=== PATIENT | female | born 1980 | race Caucasian/White ===

== ENCOUNTER 2016-04-29 16:08 | Emergency (ER) | payer MEDICAID ==
[~2016-04-29 16:08] MED LIST: /CELE20CA; /DULO30CA; /QUET10TA PO; ADDE10TA PO; ADDE1TAB22 PO; ANTA250T PO; BACL10TA2 OR; BUSP10TA2; BUTR5DIS2 TD; CAMP333T PO; CARA1TAB2 PO; CELE40TA PO; CLAR10CA3 PO; DICL75TA PO; DICLOFENAC PO; EMLA TOP; FENT12PA TD; GABA300C2 PO; HYDR-3719 PO; KLON1TAB PO; LAMI25TA PO; LODINE PO; LORT5TAB PO; MELO15TA3 PO; NEUR300C PO; OMEP10CASR PO; PERC5TAB8 PO; PREG50CA PO; PROA1AER IN; PROT1TAB2 PO; PROZ40CA PO; REME15TA PO; ROXI1TAB2 PO; SOMA350T OR; TIZA4TAB PO; TRAM50TA2; TRAM50TA2 OR; VICO10TA11 PO; VICO5TAB16 PO; VIST50CA PO; WELL75TA PO; buspar PO; vicoden; vicodin PO
[2016-04-29] MEDS ORDERED: IPRATROPIUM 0.5MG/ALBUTEROL 2.5MG INH SOL UD 3ML (DUONEB)(J7620) As Ordered ONE (18:07)
[2016-04-29] MEDS ORDERED: NORCO, ANEXSIA 5/325MG TABLET (HYDROcodone/ACETAMINOPHEN) As Ordered ONE (18:07)
--- NOTE | 2016-04-29 19:33 | EDDOCDS ---
Nurse's Notes [facility] Name: Ash Sharp Age: 36 yrs Sex: Female : 1980 Arrival Date: 04/29/2016 Time: 16:08 Bed PR2 [facility] MD: Diagnosis: Acute bronchitis;Acute upper respiratory infections of multiple and unspecified sites;Other chronic pain Presentation: 04/29 16:14 Presenting complaint: Patient states: Patient reports that she has pain all over. jmb Patient reports that cough is bad and mouth hurts. Patient reports that it is her tongue that hurts and hurts when she eats. Patient unsure why. Adult Sepsis Screening: The patient does not have new or worsening altered mentation. Patient's respiratory rate is less than 22. Systolic blood pressure is greater than 100. Patient has a qSOFA score of 0- Negative Sepsis Screen. Suicide/Homicide risk assessment- the patient denies having any suicidal and/or homicidal ideations and does not present with any other emotional, behavioral or mental health complaints. Status: Patient is not a patient service representative or dependent. Transition of care: patient was not received from another setting of care. 16:14 Acuity: MARVIN Level 3 b 16:14 Method Of Arrival: Walkin/Carried/Asstd [facility] Triage Assessment: 16:17 General: Appears in no apparent distress, comfortable, Behavior is appropriate for age, jmb cooperative. Pain: Location: head, neck, chest, abdomen, pelvis, right arm, right hand, left arm, left hand, right leg, left leg, left foot, back of head, back of neck, back of left arm, back of right arm, posterior chest, buttocks, back of left leg, back of right leg, left heel, right heel and back Pain currently is 8 out of 10 on a pain scale. HIV screening NA for this visit Offered previously. Neurological: Level of Consciousness is awake, alert, obeys commands, Oriented to person, place, time, Speech is normal, Facial symmetry appears normal, Facial symmetry: tongue is midline. Respiratory: Airway is patent Respiratory effort is even, unlabored, Respiratory pattern is regular, symmetrical. Derm: Skin is pink, warm & dry. Musculoskeletal: Range of motion intact in all extremities. 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 Prozac 40 mg Oral cap 1 cap 2 times per day 2. Wellbutrin 100 mg Oral tab 1 tab 2 times per day 3. oxybutynin chloride 5 mg Oral tab 1 tab 2 times per day 4. dicyclomine 10 mg Oral cap 1 cap twice a day - PMHx: Depression; Anxiety; bladder issues; IBS; - PSHx: finger surgery; - Social history: Smoking status: Patient states former smoker of tobacco. No barriers to communication noted, The patient speaks fluent Syriac, Speaks appropriately for age. - Family history: Not pertinent. - : The pt / caregiver states he / she is not on anticoagulants. Home medication list is obtained from the patient. - Exposure Risk Screening:: None identified. Screenin:31 Screening information is obtained from the patient. Fall risk: No risks identified. js13 Assistance ADL's: requires no assistance with activities of daily living. Abuse/DV Screen: The patient / caregiver reports he/she is: not in a situation that causes fear, pain or injury. Nutritional screening: No deficits noted. Advance Directives: There is no active DNR order. home support is adequate. Assessment: 17:31 General: Appears in no apparent distress, Behavior is appropriate for age, cooperative. js13 Pain: Location: all over. Neurological: Level of Consciousness is awake, alert. Respiratory: Airway is patent Respiratory effort is even, unlabored, Respiratory pattern is regular, symmetrical. Derm: Skin is pink, warm & dry. 18:52 General: Appears in no apparent distress, Behavior is appropriate for age, cooperative, jmb patient SITTING IN CHAIR IN ROOM READING PAPER. no VOICED COMPLAINTS AT THIS TIME. . Pain: Location: back and right heel and left heel and back of right leg and back of left leg and buttocks and posterior chest and back of right arm and back of left arm and back of neck and back of head and left foot and left leg and right leg and left hand and left arm and right hand and right arm and pelvis and abdomen and chest and neck and head Pain currently is 7 out of 10 on a pain scale. Neurological: Level of Consciousness is awake, alert, obeys commands, Oriented to person, place, time, Speech is normal, Facial symmetry appears normal, Facial symmetry: tongue is midline. Respiratory: Airway is patent Respiratory effort is even, unlabored, Respiratory pattern is regular, symmetrical. 19:31 General: Appears in no apparent distress, Behavior is appropriate for age, cooperative. mb9 Pain: Denies pain. Respiratory: Airway is patent Respiratory effort is even, unlabored. Vital Signs: 16:11 BP 111 / 67; Pulse 78; Resp 16; Temp 98.5(O); Pulse Ox 98% on R/A; Weight 65.77 kg (R); jrd Height 5 ft. 3 in. (160.02 cm) (R); Pain 8/10; 19:23 BP 119 / 67; Pulse 80; Resp 18; Temp 99.7(TE); Pulse Ox 95% on R/A; Pain 2/10; ar3 16:11 Body Mass Index 25.69 (65.77 kg, 160.02 cm) [facility] Vitals: 16:11 Log In Time: April 29, 2016 at 16:06. [facility] ED Course: 16:09 Patient visited by Kit Caballero PCA. jrd 16:09 Patient moved to Waiting jrd 16:13 Patient visited by Kit Caballero PCA. jrd 16:13 Patient moved to Pre RCE jrd 16:15 Triage Initiated jmb 17:13 Patient moved to Triage 3 ar3 17:31 The patient / caregiver is instructed regarding the plan of care and ED course. js13 17:32 Patient visited by Flory Schmitt RN. js13 17:43 Efraín [facility]-C [facility] cc10 17:43 Delia Hawkins MD is Attending Physician. cc10 17:55 Patient visited by Efraín Guzman PA-C. cc10 17:55 Patient visited by Efraín Guzman PA-C. cc10 18:05 Patient moved to PR2 / js13 18:53 Patient visited by Gucci Noland RN. jmb 19:06 Patient name changed from Fanci\S\\S\Lila\S\ to Fanci\S\ \S\Lila. EDMS 19:08 [facility] Payment Agreement was scanned into [employer] and attached to record. gjb 19:17 [facility] is Referral Physician. cc10 19:23 Patient visited by David, Keshia, TECHNICAL MARKETING CONSULTANT. ar3 19:31 No IV's were initiated during this patient's visit. No procedures done that require mb9 assistance. Administered Medications: 18:08 Drug: HYDROcodone-acetaminophen 1 tabs [hydrocodone 5 mg-acetaminophen 325 mg tablet (1 js13 tabs)] Route: PO; 18:18 Drug: Albuterol-Ipratropium 3 ml [ipratropium-albuterol 0.5 mg-3 mg(2.5 mg base)/3 mL cs15 nebulization soln (3 mL)] Route: Inhalation; RT: 18:18 Initial Med Neb Given as ordered. Respiratory: Respiratory effort is unlabored, cs15 Respiratory pattern is regular Breath sounds are coarse Breath sounds with wheezes bilaterally. Reports pain upon taking a deep breath. Order Results: There are currently no results for this order. Outcome: 19:17 Discharge ordered by Provider. cc10 19:31 Discharge Assessment: Patient awake, alert and oriented x 3. No cognitive and/or mb9 functional deficits noted. Patient verbalized understanding of disposition instructions. patient administered narcotics - no. The following High Risk Discharge criteria are identified: None. Condition: good Condition: stable Condition: improved. Discharge instructions given to patient, Instructed on discharge instructions, follow up and referral plans. medication usage, Demonstrated understanding of instructions, medications, Pt was receptive of discharge instructions/ teaching. Prescriptions given X 2. No special radiology studies were completed. Property :Personal belongings accompany Pt. 19:32 Patient left the ED. mb9 Signatures: Dispatcher [employer] EDMS Keshia Hernandez, TECHNICAL MARKETING CONSULTANT TECHNICAL MARKETING CONSULTANT ar3 Flory Schmitt RN RN js13 Gucci Noland RN RN jmb Coniski, Colin, PA-C PA-C cc10 Kit Caballero, TECHNICAL MARKETING CONSULTANT TECHNICAL MARKETING CONSULTANT d Peewee Powers RN RN mb9 David Hernandez,RT RT cs15 Ree Castillo MTDD
--- NOTE | 2016-04-29 19:33 | EDDOCDS ---
Physician Documentation [facility] Name: Ash Sharp Age: 36 yrs Sex: Female : 1980 Arrival Date: 04/29/2016 Time: 16:08 Bed PR Private MD: Disposition: 04/29/16 19:17 Discharged to Home/Self Care. Impression: Acute bronchitis, Acute upper respiratory infections of multiple and unspecified sites, Other chronic pain. - Condition is Stable. - Discharge Instructions: Chronic Pain, Upper Respiratory Infection, Adult. - Prescriptions for Hydrocodone- Acetaminophen 5-325 mg Oral Tablet - take 1 tablet by ORAL route every 6 hours As needed MDD: 4 tabs; 20 tablet. benzonatate 200 mg Oral Capsule - take 1 capsule by ORAL route 3 times per day As needed; 30 capsule. - Medication Reconciliation, Local Pharmacy Hours form. - [facility] up[facility]; When: Call to arrange an appointment; Reason: Recheck today's complaints, Continuance of care, To establish care. - Problem is chronic. - Symptoms have improved. Historical: - Allergies: flexeral; - Home Meds: 1. Prozac 40 mg Oral cap 1 cap 2 times per day 2. Wellbutrin 100 mg Oral tab 1 tab 2 times per day 3. oxybutynin chloride 5 mg Oral tab 1 tab 2 times per day 4. dicyclomine 10 mg Oral cap 1 cap twice a day - PMHx: Depression; Anxiety; bladder issues; IBS; - PSHx: finger surgery; - Social history: Smoking status: Patient states former smoker of tobacco. No barriers to communication noted, The patient speaks fluent Bahraini, Speaks appropriately for age. - Family history: Not pertinent. - : The pt / caregiver states he / she is not on anticoagulants. Home medication list is obtained from the patient. - Exposure Risk Screening:: None identified. 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 3 in. (160.02 cm) (R); Pain 8/10; 19:23 BP 119 / 67; Pulse 80; Resp 18; Temp 99.7(TE); Pulse Ox 95% on R/A; Pain 2/10; ar3 16:11 Body Mass Index 25.69 (65.77 kg, 160.02 cm) jrd MDM: 18:05 HYDROcodone-acetaminophen 5 mg-325 mg 1 tabs PO once ordered. cc10 18:05 Albuterol-Ipratropium 3 ml Inhalation once ordered. cc10 18:05 Call Respiratory ordered. cc10 18:06 Chest, 2 View (pa\E\lat) Ordered. EDMS 18:07 Call Respiratory complete. ar3 18:58 Financial registration complete. gjb 19:08 [facility] Payment Agreement was scanned into [employer] and attached to record. gjb Administered Medications: 18:08 Drug: HYDROcodone-acetaminophen 1 tabs [hydrocodone 5 mg-acetaminophen 325 mg tablet (1 js13 tabs)] Route: PO; 18:18 Drug: Albuterol-Ipratropium 3 ml [ipratropium-albuterol 0.5 mg-3 mg(2.5 mg base)/3 mL cs15 nebulization soln (3 mL)] Route: Inhalation; Signatures: Dispatcher [employer] EDMS Keshia Hernandez, SPECIALTY TRIMMER SPECIALTY TRIMMER ar3 Flory Schmitt,RN RN js13 Gucci Noland,RN RN nerisb Efraín Guzman, PA-C PA-C cc10 Peewee Powers,RN RN mb9 Ree Castillo gjb David Hernandez RT cs15 The chart was reviewed and I authenticate all verbal orders and agree with the evaluation and treatment provided.Attachments: 19:08 [facility] Payment Agreement gjb MTDD
--- NOTE | 2016-04-30 07:34 | REP ---
Clinical: Cough . Comparison: None . Technique: PA and lateral. Findings: The mediastinum and cardiac silhouette are normal. The lung quintero are clear and without acute consolidation, effusion, or pneumothorax. The skeletal structures are intact and normal. Impression: 1. No focal consolidation. Signed by Mikey Frost MD 04/29/2016 06:59 P
--- NOTE | 2016-05-01 20:34 | EDDOCDS ---
Nurse's Notes [facility] Name: Ash Sharp Age: 36 yrs Sex: Female : 1980 Arrival Date: 04/29/2016 Time: 16:08 Bed PR2 [facility] MD: Diagnosis: Acute bronchitis;Acute upper respiratory infections of multiple and unspecified sites;Other chronic pain Presentation: 04/29 16:14 Presenting complaint: Patient states: Patient reports that she has pain all over. jmb Patient reports that cough is bad and mouth hurts. Patient reports that it is her tongue that hurts and hurts when she eats. Patient unsure why. Adult Sepsis Screening: The patient does not have new or worsening altered mentation. Patient's respiratory rate is less than 22. Systolic blood pressure is greater than 100. Patient has a qSOFA score of 0- Negative Sepsis Screen. Suicide/Homicide risk assessment- the patient denies having any suicidal and/or homicidal ideations and does not present with any other emotional, behavioral or mental health complaints. Status: Patient is not a restaurant service manager or dependent. Transition of care: patient was not received from another setting of care. 16:14 Acuity: MARVIN Level 3 b 16:14 Method Of Arrival: Walkin/Carried/Asstd [facility] Triage Assessment: 16:17 General: Appears in no apparent distress, comfortable, Behavior is appropriate for age, jmb cooperative. Pain: Location: head, neck, chest, abdomen, pelvis, right arm, right hand, left arm, left hand, right leg, left leg, left foot, back of head, back of neck, back of left arm, back of right arm, posterior chest, buttocks, back of left leg, back of right leg, left heel, right heel and back Pain currently is 8 out of 10 on a pain scale. HIV screening NA for this visit Offered previously. Neurological: Level of Consciousness is awake, alert, obeys commands, Oriented to person, place, time, Speech is normal, Facial symmetry appears normal, Facial symmetry: tongue is midline. Respiratory: Airway is patent Respiratory effort is even, unlabored, Respiratory pattern is regular, symmetrical. Derm: Skin is pink, warm & dry. Musculoskeletal: Range of motion intact in all extremities. 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 Prozac 40 mg Oral cap 1 cap 2 times per day 2. Wellbutrin 100 mg Oral tab 1 tab 2 times per day 3. oxybutynin chloride 5 mg Oral tab 1 tab 2 times per day 4. dicyclomine 10 mg Oral cap 1 cap twice a day - PMHx: Depression; Anxiety; bladder issues; IBS; - PSHx: finger surgery; - Social history: Smoking status: Patient states former smoker of tobacco. No barriers to communication noted, The patient speaks fluent Nepali, Speaks appropriately for age. - Family history: Not pertinent. - : The pt / caregiver states he / she is not on anticoagulants. Home medication list is obtained from the patient. - Exposure Risk Screening:: None identified. Screenin:31 Screening information is obtained from the patient. Fall risk: No risks identified. js13 Assistance ADL's: requires no assistance with activities of daily living. Abuse/DV Screen: The patient / caregiver reports he/she is: not in a situation that causes fear, pain or injury. Nutritional screening: No deficits noted. Advance Directives: There is no active DNR order. home support is adequate. Assessment: 17:31 General: Appears in no apparent distress, Behavior is appropriate for age, cooperative. js13 Pain: Location: all over. Neurological: Level of Consciousness is awake, alert. Respiratory: Airway is patent Respiratory effort is even, unlabored, Respiratory pattern is regular, symmetrical. Derm: Skin is pink, warm & dry. 18:52 General: Appears in no apparent distress, Behavior is appropriate for age, cooperative, jmb patient SITTING IN CHAIR IN ROOM READING PAPER. no VOICED COMPLAINTS AT THIS TIME. . Pain: Location: back and right heel and left heel and back of right leg and back of left leg and buttocks and posterior chest and back of right arm and back of left arm and back of neck and back of head and left foot and left leg and right leg and left hand and left arm and right hand and right arm and pelvis and abdomen and chest and neck and head Pain currently is 7 out of 10 on a pain scale. Neurological: Level of Consciousness is awake, alert, obeys commands, Oriented to person, place, time, Speech is normal, Facial symmetry appears normal, Facial symmetry: tongue is midline. Respiratory: Airway is patent Respiratory effort is even, unlabored, Respiratory pattern is regular, symmetrical. 19:31 General: Appears in no apparent distress, Behavior is appropriate for age, cooperative. mb9 Pain: Denies pain. Respiratory: Airway is patent Respiratory effort is even, unlabored. Vital Signs: 16:11 BP 111 / 67; Pulse 78; Resp 16; Temp 98.5(O); Pulse Ox 98% on R/A; Weight 65.77 kg (R); jrd Height 5 ft. 3 in. (160.02 cm) (R); Pain 8/10; 19:23 BP 119 / 67; Pulse 80; Resp 18; Temp 99.7(TE); Pulse Ox 95% on R/A; Pain 2/10; ar3 16:11 Body Mass Index 25.69 (65.77 kg, 160.02 cm) [facility] Vitals: 16:11 Log In Time: April 29, 2016 at 16:06. [facility] ED Course: 16:09 Patient visited by Kit Caballero PCA. jrd 16:09 Patient moved to Waiting jrd 16:13 Patient visited by Kit Caballero PCA. jrd 16:13 Patient moved to Pre RCE jrd 16:15 Triage Initiated jmb 17:13 Patient moved to Triage 3 ar3 17:31 The patient / caregiver is instructed regarding the plan of care and ED course. js13 17:32 Patient visited by Flory Schmitt RN. js13 17:43 Efraín [facility]-C [facility] cc10 17:43 Delia Hawkins MD is Attending Physician. cc10 17:55 Patient visited by Efraín Guzman PA-C. cc10 17:55 Patient visited by Efraín Guzman PA-C. cc10 18:05 Patient moved to PR2 / js13 18:53 Patient visited by Gucci Noland RN. jmb 19:06 Patient name changed from Fanci\S\\S\Lila\S\ to Fanci\S\ \S\Lila. EDMS 19:08 [facility] Payment Agreement was scanned into [employer] and attached to record. gjb 19:17 [facility] is Referral Physician. cc10 19:23 Patient visited by David, Keshia, PRODUCTION UTILITY WORKER. ar3 19:31 No IV's were initiated during this patient's visit. No procedures done that require mb9 assistance. 04/30 08:07 Chest, 2 View (pa\E\lat) Returned. EDMS 09:35 T-Sheet-- Draft Copy was scanned into [employer] and attached to record. gb Administered Medications: 04/29 18:08 Drug: HYDROcodone-acetaminophen 1 tabs [hydrocodone 5 mg-acetaminophen 325 mg tablet (1 js13 tabs)] Route: PO; 18:18 Drug: Albuterol-Ipratropium 3 ml [ipratropium-albuterol 0.5 mg-3 mg(2.5 mg base)/3 mL cs15 nebulization soln (3 mL)] Route: Inhalation; RT: 18:18 Initial Med Neb Given as ordered. Respiratory: Respiratory effort is unlabored, cs15 Respiratory pattern is regular Breath sounds are coarse Breath sounds with wheezes bilaterally. Reports pain upon taking a deep breath. Order Results: Radiology Order: Chest, 2 View (pa\E\lat) Test: Chest, 2 View (pa\E\lat) REASON FOR EXAMINATION: Cough; Clinical: Cough .; ; Comparison: None .; ; Technique: PA and lateral.; ; Findings:; The mediastinum and cardiac silhouette are normal. The lung quintero are clear and; without acute consolidation, effusion, or pneumothorax. The skeletal structures; are intact and normal.; ; Impression:; 1. No focal consolidation.; ; ; Signed by; Mikey Frost MD 04/29/2016 06:59 P; Outcome: 19:17 Discharge ordered by Provider. cc10 19:31 Discharge Assessment: Patient awake, alert and oriented x 3. No cognitive and/or mb9 functional deficits noted. Patient verbalized understanding of disposition instructions. patient administered narcotics - no. The following High Risk Discharge criteria are identified: None. Condition: good Condition: stable Condition: improved. Discharge instructions given to patient, Instructed on discharge instructions, follow up and referral plans. medication usage, Demonstrated understanding of instructions, medications, Pt was receptive of discharge instructions/ teaching. Prescriptions given X 2. No special radiology studies were completed. Property :Personal belongings accompany Pt. 19:32 Patient left the ED. mb9 Signatures: Dispatcher [employer] EDKY Ailyn Batres, Reg Reg gb Keshia Hernandez, PRODUCTION UTILITY WORKER PRODUCTION UTILITY WORKER ar3 Oskar,Flory,RN RN js13 Gucci Noland, RN RN jmb Efraín Guzman, PA-C PA-C cc10 Kit Caballero, PRODUCTION UTILITY WORKER PRODUCTION UTILITY WORKER jrd Peewee Powers,RN RN mb9 David,David,RT RT cs15 Ree Castillo Chart Complete MTDD
--- NOTE | 2016-05-01 20:34 | EDDOCDS ---
Physician Documentation [facility] Name: Ash Sharp Age: 36 yrs Sex: Female : 1980 Arrival Date: 04/29/2016 Time: 16:08 Bed PR Private MD: Disposition: 04/29/16 19:17 Discharged to Home/Self Care. Impression: Acute bronchitis, Acute upper respiratory infections of multiple and unspecified sites, Other chronic pain. - Condition is Stable. - Discharge Instructions: Chronic Pain, Upper Respiratory Infection, Adult. - Prescriptions for Hydrocodone- Acetaminophen 5-325 mg Oral Tablet - take 1 tablet by ORAL route every 6 hours As needed MDD: 4 tabs; 20 tablet. benzonatate 200 mg Oral Capsule - take 1 capsule by ORAL route 3 times per day As needed; 30 capsule. - Medication Reconciliation, Local Pharmacy Hours form. - Follow up: [facility]; When: Call to arrange an appointment; Reason: Recheck today's complaints, Continuance of care, To establish care. - Problem is chronic. - Symptoms have improved. Historical: - Allergies: flexeral; - Home Meds: 1. Prozac 40 mg Oral cap 1 cap 2 times per day 2. Wellbutrin 100 mg Oral tab 1 tab 2 times per day 3. oxybutynin chloride 5 mg Oral tab 1 tab 2 times per day 4. dicyclomine 10 mg Oral cap 1 cap twice a day - PMHx: Depression; Anxiety; bladder issues; IBS; - PSHx: finger surgery; - Social history: Smoking status: Patient states former smoker of tobacco. No barriers to communication noted, The patient speaks fluent Swiss, Speaks appropriately for age. - Family history: Not pertinent. - : The pt / caregiver states he / she is not on anticoagulants. Home medication list is obtained from the patient. - Exposure Risk Screening:: None identified. 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 3 in. (160.02 cm) (R); Pain 8/10; 19:23 BP 119 / 67; Pulse 80; Resp 18; Temp 99.7(TE); Pulse Ox 95% on R/A; Pain 2/10; ar3 16:11 Body Mass Index 25.69 (65.77 kg, 160.02 cm) jrd MDM: 18:05 HYDROcodone-acetaminophen 5 mg-325 mg 1 tabs PO once ordered. cc10 18:05 Albuterol-Ipratropium 3 ml Inhalation once ordered. cc10 18:05 Call Respiratory ordered. cc10 18:06 Chest, 2 View (pa\E\lat) Ordered. EDMS 18:07 Call Respiratory complete. ar3 18:58 Financial registration complete. b :[facility] Payment Agreement was scanned into [employer] and attached to record. [facility] 04/30 09:35 T-Sheet-- Draft Copy was scanned into [employer] and attached to record. gb Administered Medications: 04/29 18:08 Drug: HYDROcodone-acetaminophen 1 tabs [hydrocodone 5 mg-acetaminophen 325 mg tablet (1 js13 tabs)] Route: PO; 18:18 Drug: Albuterol-Ipratropium 3 ml [ipratropium-albuterol 0.5 mg-3 mg(2.5 mg base)/3 mL cs15 nebulization soln (3 mL)] Route: Inhalation; Signatures: Dispatcher [employer] EDMS Ailyn Batres, Reg Reg gb Ronald Hernandeza, BLOCK CUBER BLOCK CUBER ar3 Flory Schmitt RN RN js13 Gucci Noland RN RN jmb Coniski, Colin, PA-C PA-C cc10 Peewee Powers,VANESSA RN mb9 Ree Castillo b David Hernandez RT cs15 The chart was reviewed and I authenticate all verbal orders and agree with the evaluation and treatment provided.Attachments: :08 [facility] Payment Agreement [facility] 04/30 09:35 T-Sheet-- Draft Copy gb Chart Complete MTDD
--- NOTE | 2016-05-01 20:34 | EDDOCDS ---
Physician Documentation [facility] Name: Ash Sharp Age: 36 yrs Sex: Female : 1980 Arrival Date: 04/29/2016 Time: 16:08 Bed PR Private MD: Disposition: 04/29/16 19:17 Discharged to Home/Self Care. Impression: Acute bronchitis, Acute upper respiratory infections of multiple and unspecified sites, Other chronic pain. - Condition is Stable. - Discharge Instructions: Chronic Pain, Upper Respiratory Infection, Adult. - Prescriptions for Hydrocodone- Acetaminophen 5-325 mg Oral Tablet - take 1 tablet by ORAL route every 6 hours As needed MDD: 4 tabs; 20 tablet. benzonatate 200 mg Oral Capsule - take 1 capsule by ORAL route 3 times per day As needed; 30 capsule. - Medication Reconciliation, Local Pharmacy Hours form. - [facility] up[facility]; When: Call to arrange an appointment; Reason: Recheck today's complaints, Continuance of care, To establish care. - Problem is chronic. - Symptoms have improved. Historical: - Allergies: flexeral; - Home Meds: 1. Prozac 40 mg Oral cap 1 cap 2 times per day 2. Wellbutrin 100 mg Oral tab 1 tab 2 times per day 3. oxybutynin chloride 5 mg Oral tab 1 tab 2 times per day 4. dicyclomine 10 mg Oral cap 1 cap twice a day - PMHx: Depression; Anxiety; bladder issues; IBS; - PSHx: finger surgery; - Social history: Smoking status: Patient states former smoker of tobacco. No barriers to communication noted, The patient speaks fluent Armenian, Speaks appropriately for age. - Family history: Not pertinent. - : The pt / caregiver states he / she is not on anticoagulants. Home medication list is obtained from the patient. - Exposure Risk Screening:: None identified. 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 3 in. (160.02 cm) (R); Pain 8/10; 19:23 BP 119 / 67; Pulse 80; Resp 18; Temp 99.7(TE); Pulse Ox 95% on R/A; Pain 2/10; ar3 16:11 Body Mass Index 25.69 (65.77 kg, 160.02 cm) jrd MDM: 18:05 HYDROcodone-acetaminophen 5 mg-325 mg 1 tabs PO once ordered. cc10 18:05 Albuterol-Ipratropium 3 ml Inhalation once ordered. cc10 18:05 Call Respiratory ordered. cc10 18:06 Chest, 2 View (pa\E\lat) Ordered. EDMS 18:07 Call Respiratory complete. ar3 18:58 Financial registration complete. b :08 [facility] Payment Agreement was scanned into [employer] and attached to record. [facility] 04/30 09:35 T-Sheet-- Draft Copy was scanned into [employer] and attached to record. gb Administered Medications: 04/29 18:08 Drug: HYDROcodone-acetaminophen 1 tabs [hydrocodone 5 mg-acetaminophen 325 mg tablet (1 js13 tabs)] Route: PO; 18:18 Drug: Albuterol-Ipratropium 3 ml [ipratropium-albuterol 0.5 mg-3 mg(2.5 mg base)/3 mL cs15 nebulization soln (3 mL)] Route: Inhalation; Signatures: Dispatcher [employer] EDMS Ailyn Batres, Reg Reg gb Ronald Hernandeza, WATCH CRYSTAL CUTTER WATCH CRYSTAL CUTTER ar3 Flory Schmitt RN RN js13 Gucci Noland RN RN jmb Coniski, Colin, PA-C PA-C cc10 Peewee Powers,VANESSA RN mb9 Ree Castillo b David Hernandez RT cs15 The chart was reviewed and I authenticate all verbal orders and agree with the evaluation and treatment provided.Attachments: :08 [facility] Payment Agreement [facility] 04/30 09:35 T-Sheet-- Draft Copy gb Chart Complete MTDD
== END 2016-04-29 19:32 | disposition home or self-care (01) ==
LOC: M ED 16:08
DX: J20.9 Acute bronchitis, unspecified (principal); J06.9 Acute upper respiratory infection, unspecified; G89.29 Other chronic pain; F32.9 Major depressive disorder, single episode, unspecified; F41.9 Anxiety disorder, unspecified; K58.9 Irritable bowel syndrome, unspecified; N32.9 Bladder disorder, unspecified; Z87.891 Personal history of nicotine dependence; Z79.899 Other long term (current) drug therapy; Z88.8 Allergy status to other drugs, medicaments and biological substances

== ENCOUNTER 2016-05-06 14:36 | Emergency (ER) | payer MEDICAID ==
[2016-05-06] MEDS ORDERED: METOCLOPRAMIDE INJ 10MG/2ML VIAL (J2765) As Ordered ONE (15:29)
[2016-05-06] MEDS ORDERED: KETOROLAC 30 MG/ML VIAL (J1885) As Ordered ONE (15:30)
[2016-05-06] MEDS ORDERED: ACETAMINOPHEN 325 MG TAB As Ordered ONE (16:20)
--- NOTE | 2016-05-06 16:53 | EDDOCDS ---
Nurse's Notes [facility] Name: Ash Sharp Age: 36 yrs Sex: Female : 1980 Arrival Date: 05/06/2016 Time: 14:36 Bed I7 / 29 Private MD: Diagnosis: Migraine without aura, not intractable;Cough Presentation: 05/06 14:46 Presenting complaint: Patient states: woke at 0200 with a migraine headache. Seen last [facility] week for cough , cough has not improved. This patient has no additional risk factors. Adult Sepsis Screening: The patient does not have new or worsening altered mentation. Patient's respiratory rate is less than 22. Systolic blood pressure is greater than 100. Patient has a qSOFA score of 0- Negative Sepsis Screen. Suicide/Homicide risk assessment- the patient denies having any suicidal and/or homicidal ideations and does not present with any other emotional, behavioral or mental health complaints. Status: Patient is not a horticultural services supervisor or dependent. Transition of care: patient was not received from another setting of care. 14:46 Acuity: MARVIN Level 3 [facility] 14:46 Method Of Arrival: Walkin/Carried/Asstd [facility] Triage Assessment: 14:50 Headache History: This headache is more severe than any previous headaches the patient [facility] has experienced. General: Appears uncomfortable, Behavior is appropriate for age, pleasant. Pain: Location: right parietal area and occipital area Pain currently is 9 out of 10 on a pain scale. Pt Declines HIV testing. Neurological: Level of Consciousness is awake, alert, Oriented to person, place, time, Reports headache photophobia. Respiratory: Airway is patent Respiratory effort is even, unlabored, Respiratory pattern is regular, symmetrical, Reports cough that is non-productive, persistent. Derm: Skin is pink, warm & dry. 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 dicyclomine 10 mg Oral cap 1 cap twice a day (Last dose: 05/06/2016 07:00) 2. oxybutynin chloride 5 mg Oral tab 1 tab 2 times per day (Last dose: 05/06/2016 07:00) 3. Prozac 40 mg Oral cap 1 cap once daily (Last dose: 05/06/2016 07:00) 4. Wellbutrin 100 mg Oral tab 1 tab 2 times per day (Last dose: 05/06/2016 07:00) 5. Excedrin Migraine 250-250-65 mg Oral tab 2 tablets every 4 hours as needed (Last dose: 05/06/2016 11:30) - PMHx: Anxiety; bladder issues; Depression; IBS; Migraine Headaches; - PSHx: finger surgery; - Social history: Smoking status: Patient states former smoker of tobacco. No barriers to communication noted, The patient speaks fluent Maori. - Family history: Not pertinent. - : The pt / caregiver states he / she is not on anticoagulants. Home medication list is obtained from the patient. - Exposure Risk Screening:: None identified. Screenin:41 Screening information is obtained from the patient. Fall risk: No risks identified. dls Assistance ADL's: requires no assistance with activities of daily living. Abuse/DV Screen: The patient / caregiver reports he/she is: not in a situation that causes fear, pain or injury. Nutritional screening: No deficits noted. Advance Directives: Currently, there is no health care proxy. There is no active DNR order. There is no living will. There is no Power of Contract Graphic Designer. Advance directive information has not previously been placed in an [facility] medical record. home support is adequate. Assessment: 15:40 General: Appears uncomfortable, well developed, well nourished, well groomed, Behavior dls is cooperative. Neurological: Level of Consciousness is awake, alert, EENT: No deficits noted. Cardiovascular: No deficits noted. Respiratory: No deficits noted. GI: No deficits noted. : No deficits noted. Derm: No deficits noted. Musculoskeletal: No deficits noted. Vital Signs: 14:37 BP 114 / 58; Pulse 89; Resp 16; Temp 98.2(O); Pulse Ox 99% on R/A; Weight 65.77 kg (R); lr2 Height 5 ft. 3 in. (160.02 cm) (R); Pain 9/10; 16:42 BP 100 / 57; Pulse 75; Resp 18; Temp 98.2; Pulse Ox 98% ; Pain 7/10; jam1 14:37 Body Mass Index 25.69 (65.77 kg, 160.02 cm) lr2 Vitals: 14:37 Log In Time: May 06, 2016 at 14:36. lr2 ED Course: 14:37 Patient visited by Kiley Mccormick. lr2 14:37 Patient moved to Waiting lr2 14:39 Patient moved to Pre RCE lr2 14:47 Triage Initiated kpj 15:07 Patient moved to Triage 1 dsf 15:11 David Bosch PA-C is PHCP. ar2 15:11 Marcial Alvarez MD is Attending Physician. ar2 15:11 Patient visited by David Bosch PA-C. ar2 15:20 Patient moved to I7 / ar3 15:33 Inserted saline lock: 20 gauge in right forearm The patient tolerated the procedure ld5 well. 15:41 The patient / caregiver is instructed regarding the plan of care and ED course. dls 15:41 No procedures done that require assistance. dls 16:22 Patient visited by Ely Sotelo RN. dls 16:40 PHCP role handed off by David Bosch PA-C mo1 16:40 Peewee Ashton PA is PHCP. mo1 16:49 Discontinued IV lock intact, bleeding controlled, pressure dressing applied, No dls redness/swelling at site. Administered Medications: 15:38 Drug: Metoclopramide 10 mg [metoclopramide 5 mg/mL injection solution] Route: IV; Rate: dls 40 mg/hr; Infused Over: 15 mins; Site: right forearm; 16:08 Follow up: IV Status: Completed infusion dls 16:51 Follow up: Response: Nausea is resolved dls 15:38 Drug: ketorolac 30 mg [ketorolac 30 mg/mL (1 mL) injection solution (1 mL)] Route: IVP; dls Site: right forearm; 16:51 Follow up: Response: Pain is decreased dls 15:38 Drug: NS 0.9% 1000 ml [sodium chloride 0.9 % intravenous solution] Route: IV; Rate: dls bolus; Site: right forearm; 16:50 Follow up: IV Status: Completed infusion dls 16:22 Drug: Acetaminophen 975 mg [acetaminophen 325 mg tablet (3 tabs)] Route: PO; dls 16:50 Follow up: Response: No significant change. dls Order Results: There are currently no results for this order. Outcome: 16:41 Discharge ordered by Provider. mo1 16:52 Discharge Assessment: Patient awake, alert and oriented x 3. No cognitive and/or dls functional deficits noted. Patient verbalized understanding of disposition instructions. patient administered narcotics - no. The following High Risk Discharge criteria are identified: None. Condition: stable Condition: improved. Discharge instructions given to patient, Instructed on discharge instructions, follow up and referral plans. medication usage, Demonstrated understanding of instructions, medications, Pt was receptive of discharge instructions/ teaching. Prescriptions given X 2. No special radiology studies were completed. Property sent home with patient. 16:53 Patient left the ED. dls Signatures: Maria Teresa Shearer, RN RN Ely Griffin, RN RN Jessenia Jarrett, PRINT PRODUCTION MANAGER PRINT PRODUCTION MANAGER jam1 David Bosch, PA-C PA-C ar2 Keshia Hernandez, PRINT PRODUCTION MANAGER PRINT PRODUCTION MANAGER ar3 Kiley Centeno,RN RN ld5 Diane Peña,VANESSA RN Peewee Kang PA PA mo1 Kiley Mccormick lr2 TERRI
--- NOTE | 2016-05-06 16:53 | EDDOCDS ---
Physician Documentation [facility] Name: Ash Sharp Age: 36 yrs Sex: Female : 1980 Arrival Date: 05/06/2016 Time: 14:36 Bed I7 / 29 Private MD: Disposition: 05/06/16 16:41 Discharged to Home/Self Care. Impression: Migraine without aura, not intractable, Cough. - Condition is Stable. - Discharge Instructions: Migraine Headache, Cough, Adult. - Prescriptions for Percocet 5- 325 mg Oral Tablet - take 1 tablet by ORAL route every 6 hours As needed MDD: 4 tabs; 12 tablet. benzonatate 200 mg Oral Capsule - take 1 capsule by ORAL route 3 times per day As needed; 30 capsule. - Medication Reconciliation, Local Pharmacy Hours form. - Follow up: Private Physician; When: Call to arrange an appointment; Reason: Recheck today's complaints, Continuance of care. - Problem is new. - Symptoms have improved. Historical: - Allergies: flexeral (seizures); - Home Meds: 1. dicyclomine 10 mg Oral cap 1 cap twice a day (Last dose: 05/06/2016 07:00) 2. oxybutynin chloride 5 mg Oral tab 1 tab 2 times per day (Last dose: 05/06/2016 07:00) 3. Prozac 40 mg Oral cap 1 cap once daily (Last dose: 05/06/2016 07:00) 4. Wellbutrin 100 mg Oral tab 1 tab 2 times per day (Last dose: 05/06/2016 07:00) 5. Excedrin Migraine 250-250-65 mg Oral tab 2 tablets every 4 hours as needed (Last dose: 05/06/2016 11:30) - PMHx: Anxiety; bladder issues; Depression; IBS; Migraine Headaches; - PSHx: finger surgery; - Social history: Smoking status: Patient states former smoker of tobacco. No barriers to communication noted, The patient speaks fluent Filipino. - Family history: Not pertinent. - : The pt / caregiver states he / she is not on anticoagulants. Home medication list is obtained from the patient. - Exposure Risk Screening:: None identified. 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 3 in. (160.02 cm) (R); Pain 9/10; 16:42 BP 100 / 57; Pulse 75; Resp 18; Temp 98.2; Pulse Ox 98% ; Pain 7/10; jam1 14:37 Body Mass Index 25.69 (65.77 kg, 160.02 cm) lr2 MDM: 15:18 IV Saline Lock ordered. ar2 15:18 Metoclopramide 10 mg IV at 40 mg/hr once over 15 mins ordered. ar2 15:18 ketorolac 30 mg IVP once ordered. ar2 15:18 NS 0.9% 1000 ml IV at bolus once ordered. ar2 16:17 Acetaminophen Tablet 975 mg PO once ordered. ar2 16:17 Fluid Challenge ordered. ar2 Administered Medications: 15:38 Drug: Metoclopramide 10 mg [metoclopramide 5 mg/mL injection solution] Route: IV; Rate: dls 40 mg/hr; Infused Over: 15 mins; Site: right forearm; 16:08 Follow up: IV Status: Completed infusion dls 16:51 Follow up: Response: Nausea is resolved dls 15:38 Drug: ketorolac 30 mg [ketorolac 30 mg/mL (1 mL) injection solution (1 mL)] Route: IVP; dls Site: right forearm; 16:51 Follow up: Response: Pain is decreased dls 15:38 Drug: NS 0.9% 1000 ml [sodium chloride 0.9 % intravenous solution] Route: IV; Rate: dls bolus; Site: right forearm; 16:50 Follow up: IV Status: Completed infusion dls 16:22 Drug: Acetaminophen 975 mg [acetaminophen 325 mg tablet (3 tabs)] Route: PO; dls 16:50 Follow up: Response: No significant change. dls Signatures: Maria Teresa Shearer RN RN kpj Scott, Debra, RN RN dls Robertshaw, Aaron, PA-C PA-C ar2 Peewee Ashton PA PA mo1 MTDD
--- NOTE | 2016-05-08 17:53 | EDDOCDS ---
Nurse's Notes [facility] Name: Ash Sharp Age: 36 yrs Sex: Female : 1980 Arrival Date: 05/06/2016 Time: 14:36 Bed I7 / 29 Private MD: Diagnosis: Migraine without aura, not intractable;Cough Presentation: 05/06 14:46 Presenting complaint: Patient states: woke at 0200 with a migraine headache. Seen last [facility] week for cough , cough has not improved. This patient has no additional risk factors. Adult Sepsis Screening: The patient does not have new or worsening altered mentation. Patient's respiratory rate is less than 22. Systolic blood pressure is greater than 100. Patient has a qSOFA score of 0- Negative Sepsis Screen. Suicide/Homicide risk assessment- the patient denies having any suicidal and/or homicidal ideations and does not present with any other emotional, behavioral or mental health complaints. 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 Transition of care: patient was not received from another setting of care. 14:46 Acuity: MARVIN Level 3 [facility] 14:46 Method Of Arrival: Walkin/Carried/Asstd [facility] Triage Assessment: 14:50 Headache History: This headache is more severe than any previous headaches the patient [facility] has experienced. General: Appears uncomfortable, Behavior is appropriate for age, pleasant. Pain: Location: right parietal area and occipital area Pain currently is 9 out of 10 on a pain scale. Pt Declines HIV testing. Neurological: Level of Consciousness is awake, alert, Oriented to person, place, time, Reports headache photophobia. Respiratory: Airway is patent Respiratory effort is even, unlabored, Respiratory pattern is regular, symmetrical, Reports cough that is non-productive, persistent. Derm: Skin is pink, warm & dry. 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 dicyclomine 10 mg Oral cap 1 cap twice a day (Last dose: 05/06/2016 07:00) 2. oxybutynin chloride 5 mg Oral tab 1 tab 2 times per day (Last dose: 05/06/2016 07:00) 3. Prozac 40 mg Oral cap 1 cap once daily (Last dose: 05/06/2016 07:00) 4. Wellbutrin 100 mg Oral tab 1 tab 2 times per day (Last dose: 05/06/2016 07:00) 5. Excedrin Migraine 250-250-65 mg Oral tab 2 tablets every 4 hours as needed (Last dose: 05/06/2016 11:30) - PMHx: Anxiety; bladder issues; Depression; IBS; Migraine Headaches; - PSHx: finger surgery; - Social history: Smoking status: Patient states former smoker of tobacco. No barriers to communication noted, The patient speaks fluent Kinyarwanda. - Family history: Not pertinent. - : The pt / caregiver states he / she is not on anticoagulants. Home medication list is obtained from the patient. - Exposure Risk Screening:: None identified. Screenin:41 Screening information is obtained from the patient. Fall risk: No risks identified. dls Assistance ADL's: requires no assistance with activities of daily living. Abuse/DV Screen: The patient / caregiver reports he/she is: not in a situation that causes fear, pain or injury. Nutritional screening: No deficits noted. Advance Directives: Currently, there is no health care proxy. There is no active DNR order. There is no living will. There is no Power of Solar Sales Advisor. Advance directive information has not previously been placed in an [facility] medical record. home support is adequate. Assessment: 15:40 General: Appears uncomfortable, well developed, well nourished, well groomed, Behavior dls is cooperative. Neurological: Level of Consciousness is awake, alert, EENT: No deficits noted. Cardiovascular: No deficits noted. Respiratory: No deficits noted. GI: No deficits noted. : No deficits noted. Derm: No deficits noted. Musculoskeletal: No deficits noted. Vital Signs: 14:37 BP 114 / 58; Pulse 89; Resp 16; Temp 98.2(O); Pulse Ox 99% on R/A; Weight 65.77 kg (R); lr2 Height 5 ft. 3 in. (160.02 cm) (R); Pain 9/10; 16:42 BP 100 / 57; Pulse 75; Resp 18; Temp 98.2; Pulse Ox 98% ; Pain 7/10; jam1 14:37 Body Mass Index 25.69 (65.77 kg, 160.02 cm) lr2 Vitals: 14:37 Log In Time: May 06, 2016 at 14:36. lr2 ED Course: 14:37 Patient visited by Kiley Mccormick. lr2 14:37 Patient moved to Waiting lr2 14:39 Patient moved to Pre RCE lr2 14:47 Triage Initiated kpj 15:07 Patient moved to Triage 1 dsf 15:11 David Bosch PA-C is PHCP. ar2 15:11 Marcial Alvarez MD is Attending Physician. ar2 15:11 Patient visited by David Bosch PA-C. ar2 15:20 Patient moved to I7 / ar3 15:33 Inserted saline lock: 20 gauge in right forearm The patient tolerated the procedure ld5 well. 15:41 The patient / caregiver is instructed regarding the plan of care and ED course. dls 15:41 No procedures done that require assistance. dls 16:22 Patient visited by Ely Sotelo RN. dls 16:40 PHCP role handed off by David Bosch PA-C mo1 16:40 Peewee Ashton PA is PHCP. mo1 16:49 Discontinued IV lock intact, bleeding controlled, pressure dressing applied, No dls redness/swelling at site. 17:16 [facility] Payment Agreement was scanned into [employer] and attached to record. zo 17:18 Patient name changed from Fanci\S\\S\Lila\S\ to Fanci\S\ \S\Lila. EDMS Administered Medications: 15:38 Drug: Metoclopramide 10 mg [metoclopramide 5 mg/mL injection solution] Route: IV; Rate: dls 40 mg/hr; Infused Over: 15 mins; Site: right forearm; 16:08 Follow up: IV Status: Completed infusion dls 16:51 Follow up: Response: Nausea is resolved dls 15:38 Drug: ketorolac 30 mg [ketorolac 30 mg/mL (1 mL) injection solution (1 mL)] Route: IVP; dls Site: right forearm; 16:51 Follow up: Response: Pain is decreased dls 15:38 Drug: NS 0.9% 1000 ml [sodium chloride 0.9 % intravenous solution] Route: IV; Rate: dls bolus; Site: right forearm; 16:50 Follow up: IV Status: Completed infusion dls 16:22 Drug: Acetaminophen 975 mg [acetaminophen 325 mg tablet (3 tabs)] Route: PO; dls 16:50 Follow up: Response: No significant change. dls Order Results: There are currently no results for this order. Outcome: 16:41 Discharge ordered by Provider. mo1 16:52 Discharge Assessment: Patient awake, alert and oriented x 3. No cognitive and/or dls functional deficits noted. Patient verbalized understanding of disposition instructions. patient administered narcotics - no. The following High Risk Discharge criteria are identified: None. Condition: stable Condition: improved. Discharge instructions given to patient, Instructed on discharge instructions, follow up and referral plans. medication usage, Demonstrated understanding of instructions, medications, Pt was receptive of discharge instructions/ teaching. Prescriptions given X 2. No special radiology studies were completed. Property sent home with patient. 16:53 Patient left the ED. dls Signatures: Dispatcher [employer] EDMS Maria Teresa Shearer, RN RN Ely Griffin RN RN Jessenia Jarrett, DEEP TISSUE MASSAGE THERAPIST DEEP TISSUE MASSAGE THERAPIST jam1 Agatha Callahan Aaron, PA-C PA-C ar2 Keshia Hernandez, DEEP TISSUE MASSAGE THERAPIST DEEP TISSUE MASSAGE THERAPIST ar3 Kiley Centeno,VANESSA RN ld5 Diane Peña,VANESSA RN Peewee Kang PA PA mo1 Kiley Mccormick2 Chart Complete MTDAruna
--- NOTE | 2016-05-08 17:53 | EDDOCDS ---
Physician Documentation [facility] Name: Ash Sharp Age: 36 yrs Sex: Female : 1980 Arrival Date: 05/06/2016 Time: 14:36 Bed I7 / 29 Private MD: Disposition: 05/06/16 16:41 Discharged to Home/Self Care. Impression: Migraine without aura, not intractable, Cough. - Condition is Stable. - Discharge Instructions: Migraine Headache, Cough, Adult. - Prescriptions for Percocet 5- 325 mg Oral Tablet - take 1 tablet by ORAL route every 6 hours As needed MDD: 4 tabs; 12 tablet. benzonatate 200 mg Oral Capsule - take 1 capsule by ORAL route 3 times per day As needed; 30 capsule. - Medication Reconciliation, Local Pharmacy Hours form. - Follow up: Private Physician; When: Call to arrange an appointment; Reason: Recheck today's complaints, Continuance of care. - Problem is new. - Symptoms have improved. Historical: - Allergies: flexeral (seizures); - Home Meds: 1. dicyclomine 10 mg Oral cap 1 cap twice a day (Last dose: 05/06/2016 07:00) 2. oxybutynin chloride 5 mg Oral tab 1 tab 2 times per day (Last dose: 05/06/2016 07:00) 3. Prozac 40 mg Oral cap 1 cap once daily (Last dose: 05/06/2016 07:00) 4. Wellbutrin 100 mg Oral tab 1 tab 2 times per day (Last dose: 05/06/2016 07:00) 5. Excedrin Migraine 250-250-65 mg Oral tab 2 tablets every 4 hours as needed (Last dose: 05/06/2016 11:30) - PMHx: Anxiety; bladder issues; Depression; IBS; Migraine Headaches; - PSHx: finger surgery; - Social history: Smoking status: Patient states former smoker of tobacco. No barriers to communication noted, The patient speaks fluent Turkmen. - Family history: Not pertinent. - : The pt / caregiver states he / she is not on anticoagulants. Home medication list is obtained from the patient. - Exposure Risk Screening:: None identified. 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 3 in. (160.02 cm) (R); Pain 9/10; 16:42 BP 100 / 57; Pulse 75; Resp 18; Temp 98.2; Pulse Ox 98% ; Pain 7/10; jam1 14:37 Body Mass Index 25.69 (65.77 kg, 160.02 cm) lr2 MDM: 15:18 IV Saline Lock ordered. ar2 15:18 Metoclopramide 10 mg IV at 40 mg/hr once over 15 mins ordered. ar2 15:18 ketorolac 30 mg IVP once ordered. ar2 15:18 NS 0.9% 1000 ml IV at bolus once ordered. ar2 16:17 Acetaminophen Tablet 975 mg PO once ordered. ar2 16:17 Fluid Challenge ordered. ar2 17:16 Financial registration complete. zo 17:16 [facility] Payment Agreement was scanned into [employer] and attached to record. zo Administered Medications: 15:38 Drug: Metoclopramide 10 mg [metoclopramide 5 mg/mL injection solution] Route: IV; Rate: dls 40 mg/hr; Infused Over: 15 mins; Site: right forearm; 16:08 Follow up: IV Status: Completed infusion dls 16:51 Follow up: Response: Nausea is resolved dls 15:38 Drug: ketorolac 30 mg [ketorolac 30 mg/mL (1 mL) injection solution (1 mL)] Route: IVP; dls Site: right forearm; 16:51 Follow up: Response: Pain is decreased dls 15:38 Drug: NS 0.9% 1000 ml [sodium chloride 0.9 % intravenous solution] Route: IV; Rate: dls bolus; Site: right forearm; 16:50 Follow up: IV Status: Completed infusion dls 16:22 Drug: Acetaminophen 975 mg [acetaminophen 325 mg tablet (3 tabs)] Route: PO; dls 16:50 Follow up: Response: No significant change. dls Signatures: Maria Teresa Shearer RN RN kpj Scott, Debra, RN RN dls Olin, Zoeann zo Robertshaw, Aaron, PA-C PARenatoC ar2 Peewee Ashton PA PA mo1 The chart was reviewed and I authenticate all verbal orders and agree with the evaluation and treatment provided.Attachments: 17:16 [facility] Payment Agreement zo Chart Complete MTDD
--- NOTE | 2016-05-08 17:53 | EDDOCDS ---
Physician Documentation [facility] Name: Ash Sharp Age: 36 yrs Sex: Female : 1980 Arrival Date: 05/06/2016 Time: 14:36 Bed I7 / 29 Private MD: Disposition: 05/06/16 16:41 Discharged to Home/Self Care. Impression: Migraine without aura, not intractable, Cough. - Condition is Stable. - Discharge Instructions: Migraine Headache, Cough, Adult. - Prescriptions for Percocet 5- 325 mg Oral Tablet - take 1 tablet by ORAL route every 6 hours As needed MDD: 4 tabs; 12 tablet. benzonatate 200 mg Oral Capsule - take 1 capsule by ORAL route 3 times per day As needed; 30 capsule. - Medication Reconciliation, Local Pharmacy Hours form. - Follow up: Private Physician; When: Call to arrange an appointment; Reason: Recheck today's complaints, Continuance of care. - Problem is new. - Symptoms have improved. Historical: - Allergies: flexeral (seizures); - Home Meds: 1. dicyclomine 10 mg Oral cap 1 cap twice a day (Last dose: 05/06/2016 07:00) 2. oxybutynin chloride 5 mg Oral tab 1 tab 2 times per day (Last dose: 05/06/2016 07:00) 3. Prozac 40 mg Oral cap 1 cap once daily (Last dose: 05/06/2016 07:00) 4. Wellbutrin 100 mg Oral tab 1 tab 2 times per day (Last dose: 05/06/2016 07:00) 5. Excedrin Migraine 250-250-65 mg Oral tab 2 tablets every 4 hours as needed (Last dose: 05/06/2016 11:30) - PMHx: Anxiety; bladder issues; Depression; IBS; Migraine Headaches; - PSHx: finger surgery; - Social history: Smoking status: Patient states former smoker of tobacco. No barriers to communication noted, The patient speaks fluent [place] Rican. - Family history: Not pertinent. - : The pt / caregiver states he / she is not on anticoagulants. Home medication list is obtained from the patient. - Exposure Risk Screening:: None identified. 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 3 in. (160.02 cm) (R); Pain 9/10; 16:42 BP 100 / 57; Pulse 75; Resp 18; Temp 98.2; Pulse Ox 98% ; Pain 7/10; jam1 14:37 Body Mass Index 25.69 (65.77 kg, 160.02 cm) lr2 MDM: 15:18 IV Saline Lock ordered. ar2 15:18 Metoclopramide 10 mg IV at 40 mg/hr once over 15 mins ordered. ar2 15:18 ketorolac 30 mg IVP once ordered. ar2 15:18 NS 0.9% 1000 ml IV at bolus once ordered. ar2 16:17 Acetaminophen Tablet 975 mg PO once ordered. ar2 16:17 Fluid Challenge ordered. ar2 17:16 Financial registration complete. zo 17:16 [facility] Payment Agreement was scanned into [employer] and attached to record. zo Administered Medications: 15:38 Drug: Metoclopramide 10 mg [metoclopramide 5 mg/mL injection solution] Route: IV; Rate: dls 40 mg/hr; Infused Over: 15 mins; Site: right forearm; 16:08 Follow up: IV Status: Completed infusion dls 16:51 Follow up: Response: Nausea is resolved dls 15:38 Drug: ketorolac 30 mg [ketorolac 30 mg/mL (1 mL) injection solution (1 mL)] Route: IVP; dls Site: right forearm; 16:51 Follow up: Response: Pain is decreased dls 15:38 Drug: NS 0.9% 1000 ml [sodium chloride 0.9 % intravenous solution] Route: IV; Rate: dls bolus; Site: right forearm; 16:50 Follow up: IV Status: Completed infusion dls 16:22 Drug: Acetaminophen 975 mg [acetaminophen 325 mg tablet (3 tabs)] Route: PO; dls 16:50 Follow up: Response: No significant change. dls Signatures: Maria Teresa Shearer RN RN kpj Scott, Debra, RN RN dls Olin, Zoeann zo Robertshaw, Aaron, PA-C PARenatoC ar2 Peewee Ashton PA PA mo1 The chart was reviewed and I authenticate all verbal orders and agree with the evaluation and treatment provided.Attachments: 17:16 [facility] Payment Agreement zo Chart Complete MTDD
== END 2016-05-06 16:53 | disposition home or self-care (01) ==
LOC: M ED 14:36
DX: G43.909 Migraine, unspecified, not intractable, without status migrainosus (principal); R05 Cough; F41.9 Anxiety disorder, unspecified; F32.9 Major depressive disorder, single episode, unspecified; K58.9 Irritable bowel syndrome, unspecified; Z87.891 Personal history of nicotine dependence; Z79.899 Other long term (current) drug therapy; Z88.5 Allergy status to narcotic agent
CPT/HCPCS: 96361; 96365; 96375; 99283; J1885; J2765

== ENCOUNTER → 2016-07-16 | Outpatient (REF) ==
--- NOTE | 2016-07-16 16:48 | REP ---
LUMBOSACRAL SPINE PARTIAL: REASON: Degenerative disc disease. COMPARISON: 09/12/2011 a full series. AP and lateral views shows disc space narrowing status quo which is mild and particularly posteriorly. Mild degenerative facet joint changes at L5-S1 status quo. Minimal anterior lipping L4-L5 status quo. Vertebral body height and alignment again seen to be within normal limits. Pedicles intact bilaterally. IMPRESSION: Stable mild chronic changes as described above. Signed by Mike Puentes DO 07/17/2016 10:20 A
--- NOTE | 2016-07-16 17:00 | REP ---
CERVICAL SPINE: REASON: Degenerative disc disease. COMPARISON: 10/09/2007, a full series. AP and lateral views of the cervical spine show vertebral body height and alignment to be within normal limits. The disc spaces are symmetric and well maintained and unchanged. The facet joints are again seen below and laterally. IMPRESSION: No significant abnormality noted on this limited exam as described above. Signed by Mike Puentes DO 07/17/2016 10:20 A
== END ==
LOC: M SMT 14:05
PROVIDERS: ATTEND Internal Medicine
DX: M51.36 Other intervertebral disc degeneration, lumbar region (principal); M50.33 Other cervical disc degeneration, cervicothoracic region

== ENCOUNTER 2016-08-12 17:12 | Emergency (ER) | payer MEDICAID ==
[~2016-08-12] VITALS: Ht 160 cm; Wt 66.7 kg
[2016-08-12 17:13] VITALS: BP 127/70
[2016-08-12] MEDS ORDERED: OXYB5TA PO (17:32)
[2016-08-12] MEDS ORDERED: WELLTAB38 PO (17:32)
[2016-08-12] MEDS ORDERED: DICY20TA11 PO (17:32)
[2016-08-12] MEDS ORDERED: IBUP80TA PO (19:25)
[2016-08-12] MEDS ORDERED: IBUPROFEN 800 MG TAB PO ONE (19:30)
== END 2016-08-12 20:11 | disposition home or self-care (01) ==
LOC: M ED 19:33
DX: G56.03 Carpal tunnel syndrome, bilateral upper limbs (principal); M79.7 Fibromyalgia; J45.909 Unspecified asthma, uncomplicated; F90.9 Attention-deficit hyperactivity disorder, unspecified type; Z79.899 Other long term (current) drug therapy; Z88.8 Allergy status to other drugs, medicaments and biological substances; Z88.5 Allergy status to narcotic agent; Z91.018 Allergy to other foods

== ENCOUNTER 2017-11-21 14:19 | Emergency (ER) | payer MEDICAID | END 2017-11-21 15:07 | disposition left against medical advice (07) | LOC: M ED 14:19 | DX: M79.602 Pain in left arm (principal); Z53.21 Procedure and treatment not carried out due to patient leaving prior to being seen by health care provider ==

== ENCOUNTER 2018-04-08 15:17 | Emergency (ER) | payer MEDICAID ==
[~2018-04-08] VITALS: Ht 160 cm; Wt 61.4 kg
[~2018-04-08 15:17] MED LIST changes: -CARA1TAB2 PO; +CARA1TAB6 PO; +DICY20TA11 PO; +GABA-843 PO; +IBUP80TA PO; +OXYB5TAB10 PO; -PROA1AER IN; +PROAAER10 IN; +WELLTAB38 PO
[2018-04-08] MEDS ORDERED: NICO2GUM8 (15:28)
[2018-04-08] MEDS ORDERED: ACET30TAB PO (16:26)
[2018-04-08] MEDS ORDERED: AMOX875T PO (16:26)
[2018-04-08] MEDS ORDERED: KETO10TAB PO (16:26)
[2018-04-08] MEDS ORDERED: LIDOCAINE VISCOUS 2% SOLN 15ML UDC MT ONE (16:30)
[2018-04-08] MEDS ORDERED: ACETAMINOPH W/CODEINE #3 TAB UD PO ONE (16:30)
[2018-04-08] MEDS ORDERED: AMOXICILLIN 500 MG CAP PO ONE (16:30)
[2018-04-08] MEDS ORDERED: KETOROLAC TROMETHAMINE 10 MG TAB PO ONE (16:30)
[2018-04-08 16:34] VITALS: BP 136/74
== END 2018-04-08 16:36 | disposition home or self-care (01) ==
LOC: M ED 15:17
DX: K02.9 Dental caries, unspecified (principal); K08.89 Other specified disorders of teeth and supporting structures; K21.9 Gastro-esophageal reflux disease without esophagitis; M79.7 Fibromyalgia; Z87.440 Personal history of urinary (tract) infections; F90.9 Attention-deficit hyperactivity disorder, unspecified type; F41.9 Anxiety disorder, unspecified; F17.200 Nicotine dependence, unspecified, uncomplicated; Z88.8 Allergy status to other drugs, medicaments and biological substances; Z88.5 Allergy status to narcotic agent; Z91.018 Allergy to other foods

== ENCOUNTER → 2018-10-21 | Outpatient (REF) ==
[~2018-10-21] MED LIST changes: -/CELE20CA; -/DULO30CA; -/QUET10TA PO; +ACET-716 PO; +AMOX875T PO; +CELE1CAP4; +CYMB1CAP5; +FENT12DI12 TD; -FENT12PA TD; +KETO10TAB PO; +NICO2GUM8; +SERO1TAB PO
--- NOTE | 2018-10-21 15:29 | REP ---
Partial lumbar spine series: Three views. History: Degenerative disc disease. Comparison radiographs are from July 16, 2016. Findings: Lumbar vertebral body heights are preserved. There is a mild levoconvex curve in the lumbar spine similar to the prior study. There is degenerative disc disease at L4-5 with disc space narrowing and sclerosis of the opposing endplates. There is anterior spurring. A small vacuum phenomenon is visible in the 4-5 disc. These findings are unchanged from July 16, 2016. There is mild disc space narrowing at L5-S1 as well. Pedicles and posterior elements are intact. Sacrum and SI joints are unremarkable. Psoas margins are intact. Impression: Degenerative disc disease at L4-5 and to a lesser extent L5-S1. Findings unchanged from the comparison study. Electronically Signed by Edgar Khalil MD 10/21/2018 09:04 P
== END ==
LOC: M SMT 10:37
PROVIDERS: ATTEND Internal Medicine
DX: Z00.00 Encounter for general adult medical examination without abnormal findings (principal)

== ENCOUNTER → 2018-12-16 | Outpatient (REF) | payer OTHER, MEDICAID | LOC: M SFHCLERA 10:11 | PROVIDERS: ATTEND Family Medicine | DX: Z53.9 Procedure and treatment not carried out, unspecified reason (principal) ==

== ENCOUNTER 2019-08-26 00:55 | Emergency (ER) | payer MEDICAID, OTHER ==
[~2019-08-26] VITALS: Ht 160 cm; Wt 69.5 kg
[2019-08-26] MEDS ORDERED: DEXM10TA3 (01:15)
[2019-08-26] MEDS ORDERED: ZIPR20CA13 (01:15)
[2019-08-26] MEDS ORDERED: AMPHETA/DEXTRO (01:15)
[2019-08-26 01:21] VITALS: BP 106/66
[2019-08-26 01:29] LABS: HEMOGLOBIN 14.2 g/dl (12.0-15.5); MEAN CORPUSCULAR HEMOGLOBIN 30.8 pg (27.0-33.0); MEAN CORPUSCULAR HGB CONC 33.8 g/dl (32.0-36.5); MEAN CORPUSCULAR VOLUME 91.1 fl (80.0-96.0); PLATELET COUNT, AUTOMATED 282 10^3/uL (150-450); RED BLOOD COUNT 4.61 10^6/uL (4.00-5.40); WHITE BLOOD COUNT 11.2 10^3/uL (4.0-10.0)
[2019-08-26 01:46] LABS: AMPHETAMINES LEVEL URINE NEGATIVE (NEGATIVE); BARBITURATES URINE NEGATIVE (NEGATIVE); BENZODIAZEPINES URINE NEGATIVE (NEGATIVE); CANNABINOIDS URINE NEGATIVE (NEGATIVE); COCAINE METABOLITE URINE NEGATIVE (NEGATIVE); METHADONE URINE NEGATIVE (NEGATIVE); OPIATES URINE NEGATIVE (NEGATIVE); PHENCYCLIDINE URINE NEGATIVE (NEGATIVE)
[2019-08-26 01:57] LABS: ACETAMINOPHEN LEVEL < 2.0 UG/ML (10.0-30.0); ALBUMIN 4.3 GM/DL (3.2-5.2); ALT/SGPT 20 U/L (12-78); BILIRUBIN,DIRECT < 0.1 MG/DL (0.0-0.2); BILIRUBIN,TOTAL 0.4 MG/DL (0.2-1.0); BLOOD UREA NITROGEN 10 MG/DL (7-18); CARBON DIOXIDE LEVEL 25 MEQ/L (21-32); CHLORIDE LEVEL 108 MEQ/L (98-107); CREATININE FOR GFR 0.84 MG/DL (0.55-1.30); ETHYL ALCOHOL (ETHANOL) 0.192 % (0.000-0.010); GLOMERULAR FILTRATION RATE > 60.0 (>58); GLUCOSE, FASTING 103 MG/DL (70-100); SALICYLATE LEVEL 5.4 MG/DL (5.0-30.0); SODIUM LEVEL 140 MEQ/L (136-145); TOTAL PROTEIN 7.8 GM/DL (6.4-8.2)
[2019-08-26 01:59] LABS: HCG, SERUM QUALITATIVE NEGATIVE (NEGATIVE)
== END 2019-08-26 06:27 | disposition home or self-care (01) ==
LOC: M ED 00:55
DX: F10.120 Alcohol abuse with intoxication, uncomplicated (principal); F19.10 Other psychoactive substance abuse, uncomplicated; F32.9 Major depressive disorder, single episode, unspecified; F17.210 Nicotine dependence, cigarettes, uncomplicated; Z88.5 Allergy status to narcotic agent; Z91.018 Allergy to other foods; Z79.899 Other long term (current) drug therapy
CPT/HCPCS: 36415; 80048; 80076; 80307; 84443; 84703; 85027; 99284; G0480

== ENCOUNTER 2021-06-06 13:40 | Outpatient (RCR) | payer MEDICAID ==
[~2021-06-06 13:40] MED LIST changes: +AMPHETA/DEXTRO; +DEXM10TA3; -DICY20TA11 PO; +DICY20TA20 PO; +GABA-282 PO; -GABA-843 PO; +MIRT-62 PO; -REME15TA PO; +ZIPR20CA13
== END 2021-06-07 ==
LOC: M OUTALCOH 13:40
PROVIDERS: ATTEND Psychiatry & Neurology Psychiatry
DX: F15.20 Other stimulant dependence, uncomplicated (principal); Z72.0 Tobacco use

== ENCOUNTER 2021-06-29 10:12 | Emergency (ER) | payer MEDICAID ==
[~2021-06-29] VITALS: Ht 160 cm; Wt 87.6 kg
[2021-06-29] MEDS ORDERED: AUGMENTIN 500 MG TAB PO ONE (11:00)
[2021-06-29] MEDS ORDERED: LIDOCAINE VISCOUS 2% SOLN 15ML UDC SSP ONE (11:00)
[2021-06-29] MEDS ORDERED: AUGMENTIN 875 MG TAB PO ONE (11:15)
[2021-06-29] MEDS ORDERED: LIDO2SO PO (11:50)
[2021-06-29] MEDS ORDERED: AMOX875T2 PO (11:51)
[2021-06-29 11:56] VITALS: BP 117/79
== END 2021-06-29 12:01 | disposition home or self-care (01) ==
LOC: M ED 10:12
DX: K02.9 Dental caries, unspecified (principal); S02.5XXA Fracture of tooth (traumatic), initial encounter for closed fracture; X58.XXXA Exposure to other specified factors, initial encounter; Y92.9 Unspecified place or not applicable; Y93.9 Activity, unspecified; Y99.9 Unspecified external cause status; M79.7 Fibromyalgia; K21.9 Gastro-esophageal reflux disease without esophagitis; F32.A Depression, unspecified; F90.9 Attention-deficit hyperactivity disorder, unspecified type; F41.9 Anxiety disorder, unspecified; F17.200 Nicotine dependence, unspecified, uncomplicated; Z88.8 Allergy status to other drugs, medicaments and biological substances; Z79.899 Other long term (current) drug therapy

== ENCOUNTER 2021-07-06 08:40 | Outpatient (RCR) | payer MEDICAID ==
[~2021-07-06 08:40] MED LIST changes: +AMOX875T2 PO; +LIDO2SO PO
== END 2021-07-07 ==
LOC: M OUTALCOH 08:40
PROVIDERS: ATTEND Psychiatry & Neurology Psychiatry
DX: F15.20 Other stimulant dependence, uncomplicated (principal); Z72.0 Tobacco use

== ENCOUNTER 2021-08-02 10:55 | Outpatient (RCR) | payer MEDICAID | END 2021-08-07 | LOC: M OUTALCOH 10:55 | PROVIDERS: ATTEND Psychiatry & Neurology Psychiatry | DX: F15.20 Other stimulant dependence, uncomplicated (principal); Z72.0 Tobacco use ==

== ENCOUNTER 2021-08-29 11:02 | Emergency (ER) | payer MEDICAID, OTHER ==
[~2021-08-29] VITALS: Ht 160 cm; Wt 86.7 kg
[2021-08-29 11:03] VITALS: BP 140/89
[2021-08-29] MEDS ORDERED: AMPH1CAP5 (11:34)
[2021-08-29] MEDS ORDERED: VENL150C43 (11:34)
== END 2021-08-29 12:41 | disposition left against medical advice (07) ==
LOC: M ED 11:02
DX: Z53.21 Procedure and treatment not carried out due to patient leaving prior to being seen by health care provider (principal)

== ENCOUNTER 2021-09-03 14:00 | Outpatient (RCR) | payer MEDICAID ==
[~2021-09-03 14:00] MED LIST changes: +AMPH1CAP5; +VENL150C43
== END 2021-09-06 ==
LOC: M OUTALCOH 14:00
PROVIDERS: ATTEND Psychiatry & Neurology Psychiatry
DX: F15.20 Other stimulant dependence, uncomplicated (principal); Z72.0 Tobacco use

== ENCOUNTER 2021-09-27 08:00 | Outpatient (RCR) | payer MEDICAID, OTHER | END 2021-10-07 | LOC: M OUTALCOH 08:00 | PROVIDERS: ATTEND Psychiatry & Neurology Psychiatry | DX: F15.20 Other stimulant dependence, uncomplicated (principal); Z72.0 Tobacco use ==

== ENCOUNTER 2021-10-29 14:00 | Outpatient (RCR) | payer MEDICAID | END 2021-11-07 | LOC: M OUTALCOH 14:00 | PROVIDERS: ATTEND Psychiatry & Neurology Psychiatry | DX: F15.20 Other stimulant dependence, uncomplicated (principal); Z72.0 Tobacco use ==

== ENCOUNTER 2022-12-12 19:45 | Emergency (ER) | payer MEDICAID, OTHER ==
[~2022-12-12] VITALS: Ht 160 cm; Wt 87.3 kg
[~2022-12-12 19:45] MED LIST changes: +LIDO15SO2 PO; -LIDO2SO PO; -MIRT-62 PO; +MIRT-88 PO
[2022-12-12 20:07] VITALS: TEMP 97.9
[2022-12-12] MEDS ORDERED: VENL150C43 PO (21:04)
[2022-12-12] MEDS ORDERED: CETI10CH PO (21:04)
[2022-12-12] MEDS ORDERED: [UNRECOGNIZED DRUG - CODE] PO (21:04)
[2022-12-12] MEDS ORDERED: CLON0.2T PO (21:04)
[2022-12-12] MEDS ORDERED: NAPR375T5 PO (21:04)
[2022-12-12] MEDS ORDERED: VILO200C PO (21:04)
[2022-12-12] MEDS ORDERED: BUPR8SUB SL (21:04)
[2022-12-12] MEDS ORDERED: OMEP-173 PO (21:04)
[2022-12-12] MEDS ORDERED: ALBU0.63 NEB (21:04)
[2022-12-12] MEDS ORDERED: CHLOR50TA PO (21:04)
[2022-12-12] MEDS ORDERED: LITH300C PO (21:04)
[2022-12-12] MEDS ORDERED: TRAZ-257 PO (21:04)
[2022-12-12] MEDS ORDERED: COLA100C5 PO (21:04)
[2022-12-12 21:13] LABS: BASO % 0.4 % (0.0-1.0); EOS # 0.5 10^3/uL (0.0-0.5); EOS % 5.9 % (0.0-3.0); HEMATOCRIT 36.5 % (36.0-47.0); LYMPH # 2.9 10^3/uL (1.5-5.0); LYMPH % 36.5 % (24.0-44.0); MEAN CORPUSCULAR HEMOGLOBIN 29.9 pg (27.0-33.0); MEAN CORPUSCULAR HGB CONC 32.9 g/dl (32.0-36.5); MONO # 0.9 10^3/uL (0.0-0.8); NEUTROPHILS # 3.5 10^3/uL (1.5-8.5); NEUTROPHILS % 44.9 % (36.0-66.0); PLATELET COUNT, AUTOMATED 192 10^3/uL (150-450); RED BLOOD COUNT 4.01 10^6/uL (4.00-5.40); WHITE BLOOD COUNT 7.8 10^3/uL (4.0-10.0)
[2022-12-12 21:24] LABS: ETHYL ALCOHOL (ETHANOL) < 0.003 % (0.000-0.010)
[2022-12-12 21:26] LABS: ACETAMINOPHEN LEVEL < 2.0 UG/ML (10.0-20.0); ALBUMIN 3.8 G/DL (3.2-5.2); ALKALINE PHOSPHATASE 39 U/L (46-116); ALT/SGPT 31 U/L (7.0-40); AST/SGOT 21 U/L (<34); BILIRUBIN,DIRECT < 0.1 MG/DL (<0.4); BILIRUBIN,TOTAL < 0.2 MG/DL (0.3-1.2); BLOOD UREA NITROGEN 14 MG/DL (9-23); CALCIUM LEVEL 8.7 MG/DL (8.5-10.1); CARBON DIOXIDE LEVEL 28 MMOL/L (20-31); CHLORIDE LEVEL 105 MMOL/L (98-107); CREATININE FOR GFR 0.91 MG/DL (0.55-1.30); GLOMERULAR FILTRATION RATE > 60.0 (>58); GLUCOSE, FASTING 97 MG/DL (60-100); LITHIUM LEVEL 0.38 MMOL/L (1.0-1.20); POTASSIUM SERUM 4.5 MMOL/L (3.5-5.1); SALICYLATE LEVEL < 3.0 MG/DL (<30); SODIUM LEVEL 139 MMOL/L (136-145)
[2022-12-12 21:28] LABS: THYROID STIMULATING HORMONE 7.446 uIU/ML (0.55-4.78)
[2022-12-12 21:32] LABS: CPK CREATINE PHOSPHOKINASE 59 U/L (34-145)
[2022-12-12 21:41] LABS: HCG, SERUM QUALITATIVE NEGATIVE (NEGATIVE)
[2022-12-12] MEDS ORDERED: IPRATROPIUM 0.5MG/ALBUTEROL 2.5MG INH SOL UD 3ML (DUONEB) NEB ONE (22:35)
[2022-12-12 22:37] LABS: AMPHETAMINES LEVEL URINE NEGATIVE (NEGATIVE); BARBITURATES URINE NEGATIVE (NEGATIVE); COCAINE METABOLITE URINE NEGATIVE (NEGATIVE); METHADONE URINE NEGATIVE (NEGATIVE); PHENCYCLIDINE URINE NEGATIVE (NEGATIVE)
[2022-12-12 22:38] LABS: BENZODIAZEPINES URINE NEGATIVE (NEGATIVE); CANNABINOIDS URINE NEGATIVE (NEGATIVE); OPIATES URINE NEGATIVE (NEGATIVE)
[2022-12-12 23:08] LABS: CK-MB VALUE MASS < 1.0 NG/ML (<3.6); MB/CK RELATIVE INDEX 1.69 (< OR =4)
[2022-12-13 00:15] VITALS: BP 109/70; O2SAT 97
== END 2022-12-13 01:00 | disposition home or self-care (01) ==
LOC: M ED 19:45
DX: N39.3 Stress incontinence (female) (male) (principal); Z88.5 Allergy status to narcotic agent; Z91.018 Allergy to other foods; Z79.899 Other long term (current) drug therapy; Z79.51 Long term (current) use of inhaled steroids; K21.9 Gastro-esophageal reflux disease without esophagitis; F90.9 Attention-deficit hyperactivity disorder, unspecified type

== ENCOUNTER 2022-12-19 00:15 | Inpatient (IN) | payer OTHER ==
[~2022-12-19] VITALS: Ht 160 cm; Wt 96.1 kg
[~2022-12-19 00:15] MED LIST changes: +ALBU0.63 NEB; +BUPR8SUB SL; +CETI10CH PO; +CHLOR50TA PO; +CLON0.2T PO; +COLA100C5 PO; +LITH300C PO; +NAPR375T5 PO; +OMEP-173 PO; -OXYB5TAB10 PO; +OXYB5TAB11 PO; +TRAZ-257 PO; +VENL150C43 PO; +VILO200C PO; +[UNRECOGNIZED DRUG - CODE] PO
[2022-12-19 01:33] LABS: BASO # 0.1 10^3/uL (0.0-0.2); BASO % 0.3 % (0.0-1.0); EOS # 0.6 10^3/uL (0.0-0.5); EOS % 2.3 % (0.0-3.0); HEMATOCRIT 34.5 % (36.0-47.0); HEMOGLOBIN 11.5 g/dl (12.0-15.5); LYMPH # 1.9 10^3/uL (1.5-5.0); LYMPH % 7.8 % (24.0-44.0); MEAN CORPUSCULAR HEMOGLOBIN 29.9 pg (27.0-33.0); MEAN CORPUSCULAR HGB CONC 33.3 g/dl (32.0-36.5); MEAN CORPUSCULAR VOLUME 89.8 fl (80.0-96.0); MONO # 1.5 10^3/uL (0.0-0.8); NEUTROPHILS # 20.5 10^3/uL (1.5-8.5); PLATELET COUNT, AUTOMATED 218 10^3/uL (150-450); RED BLOOD COUNT 3.84 10^6/uL (4.00-5.40); WHITE BLOOD COUNT 24.7 10^3/uL (4.0-10.0)
[2022-12-19 01:52] LABS: LITHIUM LEVEL 0.67 MMOL/L (1.0-1.20)
[2022-12-19 01:54] LABS: ALBUMIN 3.7 G/DL (3.2-5.2); ALKALINE PHOSPHATASE 43 U/L (46-116); ALT/SGPT 34 U/L (7.0-40); AST/SGOT 29 U/L (<34); BILIRUBIN,DIRECT 0.1 MG/DL (<0.4); BILIRUBIN,TOTAL 0.5 MG/DL (0.3-1.2); BLOOD UREA NITROGEN 15 MG/DL (9-23); CALCIUM LEVEL 8.7 MG/DL (8.5-10.1); CARBON DIOXIDE LEVEL 31 MMOL/L (20-31); CHLORIDE LEVEL 100 MMOL/L (98-107); CREATININE FOR GFR 0.83 MG/DL (0.55-1.30); GLOMERULAR FILTRATION RATE > 60.0 (>58); GLUCOSE, FASTING 127 MG/DL (60-100); POTASSIUM SERUM 4.2 MMOL/L (3.5-5.1); SODIUM LEVEL 135 MMOL/L (136-145); TOTAL PROTEIN 6.6 G/DL (5.7-8.2)
[2022-12-19 01:55] LABS: FREE T4 0.68 NG/DL (0.89-1.76)
[2022-12-19] MEDS ORDERED: ISOVUE-370 76% 100ML VIAL As Ordered ONE (02:03)
[2022-12-19] MEDS ORDERED: DULC5TAB PO (02:50)
[2022-12-19] MEDS ORDERED: FURO20TA2 PO ×2 (02:50→06:04)
[2022-12-19] MEDS ORDERED: [UNRECOGNIZED DRUG - CODE] PO (02:50)
[2022-12-19] MEDS ORDERED: PANTOPRAZOLE 40MG VIAL IV ONE (05:35)
[2022-12-19] MEDS ORDERED: FUROSEMIDE 20MG/2ML VIAL IV ONE (05:35)
[2022-12-19] MEDS ORDERED: ALBUTEROL SULFATE 2.5MG/0.5ML INH NEB SOLN NEB PRN (05:35)
[2022-12-19 05:53] LABS: ABG BASE EXCESS -2.5 (-2.0-2.0); ABG HCO3 22.5 MMOL/L (22.0-26.0); ABG O2 SATURATION 94.2 % (95.0-99.0); ABG PARTIAL PRESSURE CO2 39.7 mmHg (35.0-45.0); ABG PARTIAL PRESSURE O2 80.2 mmHg (75.0-100.0); ABG STANDARD HCO3 22.3 MMOL/L. (22.0-26.0); ABG TOTAL CO2 23.7 MMOL/L (22.0-29.0); ABG pH (ARTERIAL) 7.371 UNITS (7.350-7.450)
[2022-12-19] MEDS ORDERED: LITH300C PO (06:04)
[2022-12-19] MEDS ORDERED: CLON0.2T PO (06:04)
[2022-12-19] MEDS ORDERED: GUAI200T6 PO (06:04)
[2022-12-19] MEDS ORDERED: ALBU8.5H INH (06:04)
[2022-12-19] MEDS ORDERED: BUPR8SUB SL (06:04)
[2022-12-19] MEDS ORDERED: CHLOR50TA PO (06:04)
[2022-12-19] MEDS ORDERED: CETI-24 PO (06:04)
[2022-12-19] MEDS ORDERED: BISA1TAB PO (06:04)
[2022-12-19] MEDS ORDERED: LITH600C PO (06:04)
[2022-12-19] MEDS ORDERED: VENL150C43 PO (06:07)
[2022-12-19] MEDS ORDERED: TRAZ-257 PO (06:07)
[2022-12-19] MEDS ORDERED: MIRA1POW3 PO (06:07)
[2022-12-19] MEDS ORDERED: VILO200C PO (06:07)
[2022-12-19] MEDS ORDERED: NAPR375T4 PO (06:07)
[2022-12-19] MEDS ORDERED: OMEP-173 PO (06:07)
[2022-12-19] MEDS ORDERED: HOME MED LIST COMPLETE! XX SCH (06:10)
[2022-12-19] MEDS: cefTRIAXone SOD 1 GM in D5W MINI-BAG PLUS 50 ML IV SCH (06:22)
[2022-12-19] MEDS: AZITHROMYCIN INJ 500 MG, VIAL MATE ADAPTER 1 EACH in D5W 250 ML IV SCH (07:34)
[2022-12-19 07:39] LABS: HEMATOCRIT 33.3 % (36.0-47.0)
[2022-12-19] MEDS: IPRATROPIUM 0.5MG/ALBUTEROL 2.5MG INH SOL UD 3ML (DUONEB) NEB SCH ×3 (08:29→20:50)
[2022-12-19 08:59] VITALS: BP 104/61; TEMP 97.6; O2SAT 95
[2022-12-19] MEDS ORDERED: MIRALAX *UNIT DOSE* 17GM PACKET PO SCH (10:00)
[2022-12-19] MEDS ORDERED: LACTULOSE 20GM/30ML SYRUP UDC PO ONE (10:00)
[2022-12-19] MEDS: SENNA 8.6 MG TAB (SENOKOT) PO SCH (10:39)
[2022-12-19 11:30] VITALS: BP 102/56; TEMP 97.4; O2SAT 95
[2022-12-19] MEDS: SUCRALFATE 1 GM TAB PO SCH ×3 (11:30→20:37)
[2022-12-19] MEDS ORDERED: ALBUTEROL 90 MCG/ACT 8GM HFA INHALER INH PRN (14:15)
[2022-12-19] MEDS ORDERED: guaiFENesin 200 MG TAB PO PRN (14:15)
[2022-12-19] MEDS ORDERED: BISACODYL ENEMA 10MG/30ML PR ONE (14:25)
[2022-12-19 16:00] VITALS: BP 108/56; TEMP 99.6; O2SAT 88
[2022-12-19 16:05] VITALS: O2SAT 92
[2022-12-19] MEDS: CETIRIZINE (ZyrTEC) 10 MG TAB PO SCH (17:34)
[2022-12-19] MEDS: MIRALAX *UNIT DOSE* 17GM PACKET PO SCH (17:34)
[2022-12-19] MEDS: BUPRENORPHINE HCL 8MG SUBINGUAL TABLET SL SCH (17:34)
[2022-12-19] MEDS: VENLAFAXINE **XR** 75MG CAPSULE PO SCH (17:42)
[2022-12-19 20:00] VITALS: BP 110/72; TEMP 98.3; O2SAT 92
[2022-12-19 20:37] VITALS: BP 110/72
[2022-12-19] MEDS: OMEPRAZOLE 20MG CAP PO SCH (20:37)
[2022-12-19] MEDS: PANTOPRAZOLE 40MG VIAL IV SCH (20:38)
[2022-12-19] MEDS ORDERED: LITHIUM CARBONATE 300 MG CAP PO SCH (21:00)
[2022-12-19] MEDS ORDERED: cloNIDine 0.2 MG TAB PO SCH (21:00)
[2022-12-19] MEDS ORDERED: traZODone 100 MG TAB PO SCH (21:00)
[2022-12-19] MEDS ORDERED: BISACODYL 5MG TAB PO SCH (21:00)
[2022-12-19] MEDS ORDERED: BENZONATATE 100MG CAPSULE PO PRN (23:05)
[2022-12-20] VITALS: BP 112/61; TEMP 97; O2SAT 95
[2022-12-20] MEDS ORDERED: ACETAMINOPHEN TAB 650MG DOSE (2X325MG) PO PRN (00:35)
[2022-12-20] MEDS: IPRATROPIUM 0.5MG/ALBUTEROL 2.5MG INH SOL UD 3ML (DUONEB) NEB SCH ×2 (01:47→08:00)
[2022-12-20 04:00] VITALS: BP 117/61; TEMP 98.3; O2SAT 96
[2022-12-20 04:38] LABS: HEMATOCRIT 31.2 % (36.0-47.0); HEMOGLOBIN 10.1 g/dl (12.0-15.5); MEAN CORPUSCULAR HEMOGLOBIN 29.4 pg (27.0-33.0); MEAN CORPUSCULAR HGB CONC 32.4 g/dl (32.0-36.5); MEAN CORPUSCULAR VOLUME 90.7 fl (80.0-96.0); PLATELET COUNT, AUTOMATED 203 10^3/uL (150-450); RED BLOOD COUNT 3.44 10^6/uL (4.00-5.40); WHITE BLOOD COUNT 13.2 10^3/uL (4.0-10.0)
[2022-12-20 05:03] LABS: BLOOD UREA NITROGEN 9 MG/DL (9-23); CARBON DIOXIDE LEVEL 34 MMOL/L (20-31); CHLORIDE LEVEL 104 MMOL/L (98-107); CREATININE FOR GFR 0.77 MG/DL (0.55-1.30); GLOMERULAR FILTRATION RATE > 60.0 (>58); GLUCOSE, FASTING 128 MG/DL (60-100); SODIUM LEVEL 139 MMOL/L (136-145)
[2022-12-20] MEDS: cefTRIAXone SOD 1 GM in D5W MINI-BAG PLUS 50 ML IV SCH (05:30)
[2022-12-20] MEDS: AZITHROMYCIN INJ 500 MG, VIAL MATE ADAPTER 1 EACH in D5W 250 ML IV SCH (06:24)
[2022-12-20 08:00] VITALS: BP 149/66; TEMP 97.7; O2SAT 94
[2022-12-20] MEDS: CETIRIZINE (ZyrTEC) 10 MG TAB PO SCH (08:23)
[2022-12-20] MEDS: PANTOPRAZOLE 40MG VIAL IV SCH (08:23)
[2022-12-20] MEDS: BUPRENORPHINE HCL 8MG SUBINGUAL TABLET SL SCH (08:23)
[2022-12-20] MEDS: OMEPRAZOLE 20MG CAP PO SCH (08:23)
[2022-12-20] MEDS: SENNA 8.6 MG TAB (SENOKOT) PO SCH (08:23)
[2022-12-20] MEDS: SUCRALFATE 1 GM TAB PO SCH ×2 (08:23→12:00)
[2022-12-20] MEDS: VENLAFAXINE **XR** 75MG CAPSULE PO SCH (08:24)
[2022-12-20] MEDS: MIRALAX *UNIT DOSE* 17GM PACKET PO SCH ×2 (08:25)
[2022-12-20] MEDS ORDERED: ENTER DRUG NAME HERE (PATIENT'S OWN MED) XX SCH (09:00)
[2022-12-20] MEDS ORDERED: CEFD300C42 PO (11:23)
[2022-12-20] MEDS ORDERED: SUCR1TA PO (11:23)
[2022-12-20] MEDS ORDERED: PANT40TA29 PO (11:23)
[2022-12-20] MEDS ORDERED: AZIT500T5 PO (13:12)
[2022-12-20] MEDS ORDERED: BENZ-18 PO (13:38)
[2022-12-21] MEDS ORDERED: AZITHROMYCIN 250MG TABLET PO ONE (08:00)
== END 2022-12-20 14:32 | DRG 137 ==
LOC: M ED 00:15 → M ED INP 05:35 → ENRESERV 06:57 → M ICU 08:53
PROVIDERS: ADMIT Internal Medicine; ATTEND Internal Medicine
PROC: B246ZZZ Ultrasonography of Right and Left Heart (ICD-10-PCS; principal; 2022-12-19)
DX: J15.69 Pneumonia due to other Gram-negative bacteria (principal); G92.8 Other toxic encephalopathy; E66.01 Morbid (severe) obesity due to excess calories; I89.0 Lymphedema, not elsewhere classified; K92.1 Melena; D64.9 Anemia, unspecified; J45.909 Unspecified asthma, uncomplicated; K59.00 Constipation, unspecified; F39 Unspecified mood [affective] disorder; Z87.891 Personal history of nicotine dependence; Z68.35 Body mass index [BMI] 35.0-35.9, adult; Z79.899 Other long term (current) drug therapy; Z88.5 Allergy status to narcotic agent; Z88.8 Allergy status to other drugs, medicaments and biological substances; Z91.018 Allergy to other foods

== ENCOUNTER 2024-05-04 16:38 | Emergency (ER) | payer MEDICAID, OTHER, SELFPAY ==
[~2024-05-04] VITALS: Ht 160 cm; Wt 90.6 kg
[~2024-05-04 16:38] MED LIST changes: +ALBU8.5H INH; +AZIT500T5 PO; +BENZ-18 PO; +BISA1TAB PO; +CEFD1CAP9 PO; +CETI-24 PO; +DEXM10TA2; -DEXM10TA3; +DULC5TAB PO; +FURO20TA2 PO; +GABA-1172 PO; -GABA-282 PO; +GUAI200T6 PO; -KLON1TAB PO; +KLON1TAB13 PO; -LIDO15SO2 PO; +LIDO15SO9 PO; +LITH600C PO; +MIRA33506 PO; +NAPR-1404 PO; +NAPR-1450 PO; -NAPR375T5 PO; -OXYB5TAB11 PO; +OXYB5TAB14 PO; +PANT40TA29 PO; +SUCR1TA PO; +[UNRECOGNIZED DRUG - CODE] PO
[2024-05-04 16:43] VITALS: TEMP 97
[2024-05-04 19:46] LABS: BASO % 0.5 % (0.0-1.0); EOS # 0.2 10^3/uL (0.0-0.5); EOS % 2.4 % (0.0-3.0); HEMATOCRIT 36.4 % (36.0-47.0); HEMOGLOBIN 12.3 g/dl (12.0-15.5); LYMPH # 1.8 10^3/uL (1.5-5.0); LYMPH % 20.3 % (24.0-44.0); MEAN CORPUSCULAR HEMOGLOBIN 29.9 pg (27.0-33.0); MEAN CORPUSCULAR HGB CONC 33.8 g/dl (32.0-36.5); MEAN CORPUSCULAR VOLUME 88.3 fl (80.0-96.0); MONO # 1.1 10^3/uL (0.0-0.8); MONO % 12.3 % (2.0-8.0); NEUTROPHILS # 5.5 10^3/uL (1.5-8.5); NEUTROPHILS % 64.3 % (36.0-66.0); PLATELET COUNT, AUTOMATED 243 10^3/uL (150-450); RED BLOOD COUNT 4.12 10^6/uL (4.00-5.40); WHITE BLOOD COUNT 8.6 10^3/uL (4.0-10.0)
[2024-05-04 20:04] LABS: BLOOD UREA NITROGEN 15 MG/DL (9-23); CALCIUM LEVEL 8.5 MG/DL (8.5-10.1); CARBON DIOXIDE LEVEL 25 MMOL/L (20-31); CHLORIDE LEVEL 104 MMOL/L (98-107); CREATININE FOR GFR 0.65 MG/DL (0.55-1.30); GLOMERULAR FILTRATION RATE > 60.0 (>58); GLUCOSE, FASTING 97 MG/DL (60-100); POTASSIUM SERUM 3.7 MMOL/L (3.5-5.1); SODIUM LEVEL 138 MMOL/L (136-145)
[2024-05-04] MEDS: FUROSEMIDE 40 MG TAB PO ONE (20:44)
[2024-05-04] MEDS: IPRATROPIUM 0.5MG/ALBUTEROL 2.5MG INH SOL UD 3ML (DUONEB) NEB PRN (20:44)
[2024-05-04] MEDS ORDERED: AMOX875T2 PO (20:48)
[2024-05-04] MEDS ORDERED: IPRA0.00 NEB (21:14)
[2024-05-04] MEDS ORDERED: PRED20TA PO (21:14)
[2024-05-04] MEDS ORDERED: FURO20TA2 PO (21:14)
[2024-05-04 21:21] VITALS: BP 145/86; O2SAT 96
== END 2024-05-04 21:23 | disposition home or self-care (01) ==
LOC: M ED 16:38
DX: J18.9 Pneumonia, unspecified organism (principal); B34.2 Coronavirus infection, unspecified; J90 Pleural effusion, not elsewhere classified; M79.7 Fibromyalgia; J45.909 Unspecified asthma, uncomplicated; F17.200 Nicotine dependence, unspecified, uncomplicated; F19.11 Other psychoactive substance abuse, in remission; Z88.5 Allergy status to narcotic agent; Z88.8 Allergy status to other drugs, medicaments and biological substances; Z91.018 Allergy to other foods; Z79.52 Long term (current) use of systemic steroids; Z79.899 Other long term (current) drug therapy; Z79.2 Long term (current) use of antibiotics